=== PATIENT | male | born 1965 | race Caucasian/White ===

== ENCOUNTER 2019-04-21 20:10 | Observation (INO) ==
[2019-04-21] MEDS ORDERED: Aspirin 81 MG TAB.CHEW PO ONE (20:27)
[2019-04-21 20:49] LABS: Basophils % 0.4 %; Eosinophils # 0.3 K/mcL (0.0-0.6); Hematocrit 39.8 % (37.5-50.1); Hemoglobin 13.6 g/dL (12.9-16.9); Immature Granulocytes % 0.5 % (0-4); Lymphocytes # 2.4 K/mcL (0.6-4.6); Lymphocytes % 29.5 %; Mean Corpuscular HGB Conc 34.2 g/dL (31.6-35.5); Mean Corpuscular Hemoglobin 28.7 pg (28.0-33.3); Mean Platelet Volume 9.3 fL (9.4-12.4); Monocytes # 0.7 K/mcL (0.0-1.3); Monocytes % 8.7 %; Neutrophils # 4.6 K/mcL (1.6-8.9); Platelet Count 303 K/mcL (140-400); Red Blood Count 4.74 M/mcL (4.19-5.50); Red Cell Distribution Width 12.6 % (11.5-14.5); Segmented Neutrophils % 56.9 %; White Blood Count 8.2 K/mcL (4.3-11.1)
[2019-04-21 21:09] LABS: BUN/Creatinine Ratio 17 (6-26); Blood Urea Nitrogen 19 mg/dL (6-20); Calcium 9.1 mg/dL (8.6-10.3); Carbon Dioxide 24 mEq/L (23-29); Chloride 103 mEq/L (98-107); Glucose 111 mg/dL (70-105); Osmolality,Calculated 287 (280-300); Potassium 4.1 mEq/L (3.5-5.1); Sodium 137 mEq/L (136-145); Troponin I < 0.03 ng/mL (< 0.04); eGFR For African Americans > 60 (> 60); eGFR For Non-African Americans > 60 (> 60)
[2019-04-22] MEDS ORDERED: Naloxone 0.4 MG/ML INJ IVP PRN (02:20)
[2019-04-22] MEDS ORDERED: Acetaminophen 325 MG TABLET PO PRN (02:20)
[2019-04-22] MEDS ORDERED: Ondansetron 4 MG/2 ML VIAL IVP PRN (02:20)
[2019-04-22 03:51] LABS: Basophils % 0.6 %; Eosinophils # 0.3 K/mcL (0.0-0.6); Eosinophils % 4.2 %; Hematocrit 38.2 % (37.5-50.1); Hemoglobin 12.7 g/dL (12.9-16.9); Immature Granulocytes % 0.4 % (0-4); Lymphocytes # 2.3 K/mcL (0.6-4.6); Lymphocytes % 33.7 %; Mean Corpuscular HGB Conc 33.2 g/dL (31.6-35.5); Mean Corpuscular Hemoglobin 29.3 pg (28.0-33.3); Mean Corpuscular Volume 88.2 fL (83.0-100.0); Mean Platelet Volume 9.3 fL (9.4-12.4); Monocytes # 0.5 K/mcL (0.0-1.3); Monocytes % 8.1 %; Neutrophils # 3.6 K/mcL (1.6-8.9); Platelet Count 263 K/mcL (140-400); Red Blood Count 4.33 M/mcL (4.19-5.50); Red Cell Distribution Width 12.6 % (11.5-14.5); White Blood Count 6.7 K/mcL (4.3-11.1)
[2019-04-22 03:52] LABS: INR 0.9; Prothrombin Time 10.6 Seconds (9.4-12.1)
[2019-04-22 04:03] LABS: BUN/Creatinine Ratio 16 (6-26); Blood Urea Nitrogen 17 mg/dL (6-20); Calcium 9.1 mg/dL (8.6-10.3); Carbon Dioxide 26 mEq/L (23-29); Chloride 104 mEq/L (98-107); Chol/HDL Ratio 2.6 (0-4.9); Cholesterol 111 mg/dL (< 200); Glucose 106 mg/dL (70-105); HDL Cholesterol 43 mg/dL (40-59); LDL Cholesterol,Calculated 48 mg/dL (0-99); Magnesium 2.2 mg/dL (1.6-2.6); Osmolality,Calculated 284 (280-300); Phosphorous 4.1 mg/dL (2.7-4.5); Potassium 3.8 mEq/L (3.5-5.1); Sodium 136 mEq/L (136-145); Triglycerides 102 mg/dL (< 150); eGFR For African Americans > 60 (> 60); eGFR For Non-African Americans > 60 (> 60)
[2019-04-22] MEDS: 0.9 % Sodium Chloride 1,000 ML IVC SCH (04:45)
[2019-04-22] MEDS: Budesonide/Formoterol 80/4.5 1 PUFF INH IH SCH ×2 (07:49→20:40)
[2019-04-22] MEDS: carvediloL 25 MG TABLET PO SCH ×2 (08:50→16:57)
[2019-04-22] MEDS: Aspirin Enteric Coated 81 MG Tablet PO SCH (08:50)
[2019-04-22] MEDS: Furosemide 20 MG TABLET PO SCH (08:50)
[2019-04-22] MEDS ORDERED: Isosorbide MONOnitrate (24 HR) 30 MG TAB.ER.24H PO SCH (09:00)
[2019-04-22] MEDS ORDERED: amLODIPine 5 MG TABLET PO SCH (09:00)
[2019-04-22] MEDS: *HR* Heparin 5,000 UNIT/ML VIAL SQ SCH (16:57)
[2019-04-23] MEDS: 0.9 % Sodium Chloride 1,000 ML IVC SCH (00:22)
[2019-04-23] MEDS: *HR* Heparin 5,000 UNIT/ML VIAL SQ SCH (05:38)
[2019-04-23] MEDS: Budesonide/Formoterol 80/4.5 1 PUFF INH IH SCH (07:31)
[2019-04-23] MEDS: Aspirin Enteric Coated 81 MG Tablet PO SCH (07:56)
[2019-04-23] MEDS: carvediloL 25 MG TABLET PO SCH ×2 (07:57→16:24)
[2019-04-23] MEDS: Furosemide 20 MG TABLET PO SCH (07:57)
[2019-04-23] MEDS ORDERED: amLODIPine 5 MG TABLET PO SCH (09:00)
[2019-04-23] MEDS ORDERED: Isosorbide MONOnitrate (24 HR) 30 MG TAB.ER.24H PO SCH (09:00)
[2019-04-23] MEDS ORDERED: *HR* LORazepam 2 MG/ML VIAL IVP ONE (12:30)
[2019-04-23] MEDS ORDERED: GuaiFENesin Liq 200 MG/10 ML UDC PO PRN (14:15)
[2019-04-23 15:12] VITALS: BP 143/87
== END 2019-04-23 17:39 | disposition home or self-care (01) ==
LOC: EMEROOARM 20:10 → 3BNU 20:10 → SUATTDRO 04-22 00:59 → 3BNU 04-22 01:56
PROVIDERS: ADMIT Student in an Organized Health Care Education/Training Program; ATTEND Internal Medicine

== ENCOUNTER 2019-05-13 17:14 | Inpatient (IN) ==
[2019-05-13] MEDS ORDERED: Isovue-370 500 ML BOTTLE IVP ONE (17:39)
[2019-05-13 17:47] LABS: Hematocrit 39.7 % (37.5-50.1); Hemoglobin 13.4 g/dL (12.9-16.9); Mean Corpuscular HGB Conc 33.8 g/dL (31.6-35.5); Mean Corpuscular Hemoglobin 29.3 pg (28.0-33.3); Mean Corpuscular Volume 86.7 fL (83.0-100.0); Mean Platelet Volume 9.3 fL (9.4-12.4); Platelet Count 282 K/mcL (140-400); Red Blood Count 4.58 M/mcL (4.19-5.50); Red Cell Distribution Width 12.6 % (11.5-14.5); White Blood Count 6.8 K/mcL (4.3-11.1)
[2019-05-13 18:09] LABS: Activated Partial Thrombo Time 33.5 Seconds (26.0-36.0)
[2019-05-13 18:22] LABS: BUN/Creatinine Ratio 13 (6-26); Blood Urea Nitrogen 14 mg/dL (6-20); Calcium 9.2 mg/dL (8.6-10.3); Carbon Dioxide 22 mEq/L (23-29); Chloride 108 mEq/L (98-107); Glucose 102 mg/dL (70-105); Osmolality,Calculated 289 (280-300); Potassium 3.7 mEq/L (3.5-5.1); Sodium 139 mEq/L (136-145); Troponin I < 0.03 ng/mL (< 0.04); eGFR For African Americans > 60 (> 60); eGFR For Non-African Americans > 60 (> 60)
[2019-05-13] MEDS ORDERED: Aspirin Enteric Coated 325 MG Tablet PO ONE (22:19)
[2019-05-13] MEDS ORDERED: Naloxone 0.4 MG/ML INJ IVP PRN (22:26)
[2019-05-14 05:04] LABS: Basophils % 0.5 %; Eosinophils # 0.2 K/mcL (0.0-0.6); Eosinophils % 3.7 %; Hematocrit 36.7 % (37.5-50.1); Hemoglobin 12.1 g/dL (12.9-16.9); Immature Granulocytes % 0.2 % (0-4); Lymphocytes # 1.9 K/mcL (0.6-4.6); Lymphocytes % 33.8 %; Mean Corpuscular Hemoglobin 29.2 pg (28.0-33.3); Mean Corpuscular Volume 88.6 fL (83.0-100.0); Mean Platelet Volume 9.3 fL (9.4-12.4); Monocytes # 0.7 K/mcL (0.0-1.3); Monocytes % 11.4 %; Neutrophils # 2.9 K/mcL (1.6-8.9); Platelet Count 266 K/mcL (140-400); Red Blood Count 4.14 M/mcL (4.19-5.50); Red Cell Distribution Width 12.8 % (11.5-14.5); Segmented Neutrophils % 50.4 %; White Blood Count 5.7 K/mcL (4.3-11.1)
[2019-05-14 05:19] LABS: Alanine Aminotransferase 16 Units/L (7-52); Albumin 3.8 g/dL (3.5-5.7); Albumin/Globulin Ratio 1.6 (1.1-2.2); Alkaline Phosphatase 66 Units/L (34-104); Aspartate Amino Transferase 13 Units/L (13-39); BUN/Creatinine Ratio 15 (6-26); Bilirubin,Total 0.4 mg/dL (0.3-1.0); Blood Urea Nitrogen 16 mg/dL (6-20); Calcium 8.8 mg/dL (8.6-10.3); Carbon Dioxide 25 mEq/L (23-29); Chloride 109 mEq/L (98-107); Chol/HDL Ratio 2.6 (0-4.9); Cholesterol 95 mg/dL (< 200); Globulin 2.4 g/dL (2.4-3.5); Glucose 97 mg/dL (70-105); HDL Cholesterol 36 mg/dL (40-59); LDL Cholesterol,Calculated 25 mg/dL (0-99); Magnesium 2.3 mg/dL (1.6-2.6); Osmolality,Calculated 293 (280-300); Potassium 3.8 mEq/L (3.5-5.1); Sodium 141 mEq/L (136-145); Total Protein 6.2 g/dL (6.4-8.9); Triglycerides 169 mg/dL (< 150); eGFR For African Americans > 60 (> 60); eGFR For Non-African Americans > 60 (> 60)
[2019-05-14 05:31] LABS: Thyroid Stimulating Hormone 2.431 mcIU/mL (0.340-5.600)
[2019-05-14] MEDS: Budesonide/Formoterol 80/4.5 1 PUFF INH IH SCH ×2 (07:37→20:18)
[2019-05-14] MEDS: Aspirin Enteric Coated 81 MG Tablet PO SCH (08:42)
[2019-05-14] MEDS ORDERED: *HR* LORazepam 2 MG/ML VIAL IVP ONE (09:30)
[2019-05-14] MEDS: *HR* Heparin 5,000 UNIT/ML VIAL SQ SCH ×2 (14:50→22:11)
[2019-05-14] MEDS: carvediloL 25 MG TABLET PO SCH (17:00)
[2019-05-14] MEDS ORDERED: GI Cocktail 40 ML EACH PO ONE (23:28)
[2019-05-15] MEDS: *HR* Heparin 5,000 UNIT/ML VIAL SQ SCH ×3 (06:33→21:17)
[2019-05-15] MEDS: Budesonide/Formoterol 80/4.5 1 PUFF INH IH SCH ×2 (07:47→19:44)
[2019-05-15 08:46] LABS: Estimated Average Glucose 131 mg/dl
[2019-05-15] MEDS: Cholecalciferol (D-3) 1,000 UNIT (25MCG) TABLET PO SCH (10:40)
[2019-05-15] MEDS: carvediloL 25 MG TABLET PO SCH ×2 (10:40→17:03)
[2019-05-15] MEDS: Aspirin Enteric Coated 81 MG Tablet PO SCH (10:40)
[2019-05-15] MEDS ORDERED: *HR* LORazepam 2 MG/ML VIAL IVP STA (15:34)
[2019-05-16 02:54] LABS: BUN/Creatinine Ratio 13 (6-26); Blood Urea Nitrogen 16 mg/dL (6-20); Calcium 8.8 mg/dL (8.6-10.3); Carbon Dioxide 26 mEq/L (23-29); Chloride 106 mEq/L (98-107); Glucose 121 mg/dL (70-105); Magnesium 2.2 mg/dL (1.6-2.6); Osmolality,Calculated 288 (280-300); Phosphorous 4.4 mg/dL (2.7-4.5); Potassium 3.7 mEq/L (3.5-5.1); Sodium 138 mEq/L (136-145); eGFR For African Americans > 60 (> 60); eGFR For Non-African Americans > 60 (> 60)
[2019-05-16] MEDS: *HR* Heparin 5,000 UNIT/ML VIAL SQ SCH ×3 (06:00→21:29)
[2019-05-16] MEDS: Budesonide/Formoterol 80/4.5 1 PUFF INH IH SCH ×2 (07:35→20:13)
[2019-05-16] MEDS: Cholecalciferol (D-3) 1,000 UNIT (25MCG) TABLET PO SCH (09:45)
[2019-05-16] MEDS: carvediloL 25 MG TABLET PO SCH ×2 (09:46→17:10)
[2019-05-16] MEDS: Aspirin Enteric Coated 81 MG Tablet PO SCH (09:46)
[2019-05-16] MEDS ORDERED: *HR* LORazepam 2 MG/ML VIAL IVP ONE (16:00)
[2019-05-16] MEDS ORDERED: Acetaminophen 325 MG TABLET PO PRN (21:31)
[2019-05-16 22:18] LABS: Bilirubin,Urine Negative (Negative); Blood,Urine Negative (Negative); Clarity,Urine Clear (Clear); Color,Urine Yellow (Yellow); Glucose,Urine (UA) Normal (Normal); Ketones,Urine Negative (Negative); Leukocyte Esterase,Urine Negative (Negative); Nitrite,Urine Negative (Negative); Protein,Urine Negative (Neg-Trace); Specific Gravity,Urine 1.015 (1.010-1.025); Urobilinogen,Urine Normal (Normal)
[2019-05-17 01:55] LABS: Basophils % 0.6 %; Eosinophils # 0.3 K/mcL (0.0-0.6); Eosinophils % 4.1 %; Hematocrit 35.5 % (37.5-50.1); Hemoglobin 11.8 g/dL (12.9-16.9); Immature Granulocytes % 0.4 % (0-4); Lymphocytes # 2.4 K/mcL (0.6-4.6); Lymphocytes % 33.2 %; Mean Corpuscular HGB Conc 33.2 g/dL (31.6-35.5); Mean Corpuscular Hemoglobin 29.5 pg (28.0-33.3); Mean Corpuscular Volume 88.8 fL (83.0-100.0); Mean Platelet Volume 9.3 fL (9.4-12.4); Monocytes # 0.6 K/mcL (0.0-1.3); Monocytes % 9.1 %; Neutrophils # 3.7 K/mcL (1.6-8.9); Platelet Count 256 K/mcL (140-400); Red Cell Distribution Width 12.7 % (11.5-14.5); Segmented Neutrophils % 52.6 %; White Blood Count 7.1 K/mcL (4.3-11.1)
[2019-05-17 02:13] LABS: BUN/Creatinine Ratio 13 (6-26); Blood Urea Nitrogen 14 mg/dL (6-20); Calcium 8.7 mg/dL (8.6-10.3); Carbon Dioxide 26 mEq/L (23-29); Chloride 105 mEq/L (98-107); Glucose 100 mg/dL (70-105); Magnesium 2.2 mg/dL (1.6-2.6); Osmolality,Calculated 283 (280-300); Phosphorous 4.2 mg/dL (2.7-4.5); Potassium 3.8 mEq/L (3.5-5.1); Sodium 136 mEq/L (136-145); eGFR For African Americans > 60 (> 60); eGFR For Non-African Americans > 60 (> 60)
[2019-05-17] MEDS: *HR* Heparin 5,000 UNIT/ML VIAL SQ SCH ×3 (05:10→21:38)
[2019-05-17] MEDS: Budesonide/Formoterol 80/4.5 1 PUFF INH IH SCH ×2 (07:31→19:45)
[2019-05-17] MEDS: Cholecalciferol (D-3) 1,000 UNIT (25MCG) TABLET PO SCH (09:16)
[2019-05-17] MEDS: Aspirin Enteric Coated 81 MG Tablet PO SCH (09:16)
[2019-05-17] MEDS: carvediloL 25 MG TABLET PO SCH ×2 (09:17→16:59)
[2019-05-18 05:08] LABS: Basophils # 0.1 K/mcL (0.0-0.2); Basophils % 0.7 %; Eosinophils # 0.2 K/mcL (0.0-0.6); Eosinophils % 3.3 %; Hematocrit 35.7 % (37.5-50.1); Hemoglobin 11.6 g/dL (12.9-16.9); Immature Granulocytes % 0.7 % (0-4); Lymphocytes # 2.1 K/mcL (0.6-4.6); Lymphocytes % 29.8 %; Mean Corpuscular HGB Conc 32.5 g/dL (31.6-35.5); Mean Corpuscular Hemoglobin 29.1 pg (28.0-33.3); Mean Corpuscular Volume 89.7 fL (83.0-100.0); Mean Platelet Volume 9.7 fL (9.4-12.4); Monocytes # 0.7 K/mcL (0.0-1.3); Monocytes % 9.7 %; Neutrophils # 3.9 K/mcL (1.6-8.9); Platelet Count 268 K/mcL (140-400); Red Blood Count 3.98 M/mcL (4.19-5.50); Segmented Neutrophils % 55.8 %; White Blood Count 6.9 K/mcL (4.3-11.1)
[2019-05-18] MEDS: *HR* Heparin 5,000 UNIT/ML VIAL SQ SCH (05:16)
[2019-05-18 05:30] LABS: BUN/Creatinine Ratio 15 (6-26); Blood Urea Nitrogen 19 mg/dL (6-20); Calcium 8.8 mg/dL (8.6-10.3); Carbon Dioxide 22 mEq/L (23-29); Chloride 106 mEq/L (98-107); Glucose 121 mg/dL (70-105); Magnesium 2.2 mg/dL (1.6-2.6); Osmolality,Calculated 288 (280-300); Phosphorous 4.6 mg/dL (2.7-4.5); Potassium 3.8 mEq/L (3.5-5.1); Sodium 137 mEq/L (136-145); eGFR For African Americans > 60 (> 60); eGFR For Non-African Americans > 60 (> 60)
[2019-05-18] MEDS: Budesonide/Formoterol 80/4.5 1 PUFF INH IH SCH (07:42)
[2019-05-18] MEDS ORDERED: ceFAZolin 2,000 MG in 0.9 % Sodium Chloride 100 ML IVPB ONE (07:45)
[2019-05-18] MEDS: Cholecalciferol (D-3) 1,000 UNIT (25MCG) TABLET PO SCH (07:50)
[2019-05-18] MEDS: carvediloL 25 MG TABLET PO SCH ×3 (07:50→18:41)
[2019-05-18] MEDS: Aspirin Enteric Coated 81 MG Tablet PO SCH (07:50)
[2019-05-18] MEDS ORDERED: *HR* Midazolam HCl 2 MG/2 ML VIAL ONE (09:35)
[2019-05-18] MEDS ORDERED: *HR* FentaNYL (PF) 100 MCG/2 ML VIAL ONE (09:35)
[2019-05-18] MEDS ORDERED: *HR* Propofol 200 MG/20 ML VIAL IVP ONE (09:35)
[2019-05-18] MEDS ORDERED: Lidocaine -MPF 4% 5 ML AMPUL ONE (09:36)
[2019-05-18] MEDS ORDERED: Ondansetron 4 MG/2 ML VIAL ONE (09:36)
[2019-05-18] MEDS ORDERED: Lidocaine -MPF 2% 2 ML VIAL ONE (09:36)
[2019-05-18] MEDS ORDERED: *HR* Succinylcholine 200 MG/10 ML VIAL IVP ONE (09:36)
[2019-05-18] MEDS ORDERED: Dexamethasone 4 MG/ML VIAL ONE (09:36)
[2019-05-18] MEDS ORDERED: *HR* Remifentanil 1 MG VIAL IVP ONE (09:40)
[2019-05-18] MEDS ORDERED: Bacitracin 50,000 UNIT, Polymyxin B Sulfate 500,000 UNIT, Sodium Chloride IRRigation 1,... IR ONE (10:05)
[2019-05-18] MEDS ORDERED: Heparin 1,000 UNITS/500 mL 500 ML ONE (10:16)
[2019-05-18] MEDS ORDERED: *HR* Promethazine 25 MG/ML VIAL IVP PRN (10:25)
[2019-05-18] MEDS ORDERED: *HR* Labetalol 20 MG/4 ML SYRINGE IVP PRN (10:25)
[2019-05-18] MEDS ORDERED: Ondansetron 4 MG/2 ML VIAL IVP PRN ×2 (10:25→13:45)
[2019-05-18] MEDS ORDERED: *HR* HYDROmorphone (PF) 1 MG/ML SYRINGE IVP PRN (10:35)
[2019-05-18] MEDS ORDERED: Ringers Solution, Lactated 1,000 ML IVC SCH (10:45)
[2019-05-18] MEDS ORDERED: Naloxone 0.4 MG/ML INJ IVP PRN (13:45)
[2019-05-18] MEDS ORDERED: Acetaminophen 325 MG TABLET PO PRN (13:45)
[2019-05-18] MEDS: *HR* HYDROcodone/Acet 5/325 mg TABLET PO PRN (17:18)
[2019-05-18] MEDS: ceFAZolin 2,000 MG in 0.9 % Sodium Chloride 100 ML IVPB SCH (20:23)
[2019-05-18] MEDS: *HR* OxyCODONE Immed Rel 5 MG TABLET PO PRN (23:02)
[2019-05-19] MEDS: Ringers Solution, Lactated 1,000 ML IVC SCH ×3 (00:43→15:25)
[2019-05-19] MEDS: ceFAZolin 2,000 MG in 0.9 % Sodium Chloride 100 ML IVPB SCH (02:55)
[2019-05-19] MEDS: *HR* OxyCODONE Immed Rel 5 MG TABLET PO PRN ×2 (08:25→22:14)
[2019-05-19] MEDS: amLODIPine 5 MG TABLET PO SCH (08:25)
[2019-05-19] MEDS: Furosemide 20 MG TABLET PO SCH (08:25)
[2019-05-19] MEDS: carvediloL 25 MG TABLET PO SCH ×2 (08:25→16:54)
[2019-05-19] MEDS ORDERED: Spironolactone 25 MG TABLET PO SCH (09:00)
[2019-05-19] MEDS: *HR* HYDROcodone/Acet 5/325 mg TABLET PO PRN (15:30)
[2019-05-20] MEDS: Ringers Solution, Lactated 1,000 ML IVC SCH (01:28)
[2019-05-20 02:49] LABS: BUN/Creatinine Ratio 15 (6-26); Blood Urea Nitrogen 16 mg/dL (6-20); Calcium 8.6 mg/dL (8.6-10.3); Carbon Dioxide 25 mEq/L (23-29); Chloride 104 mEq/L (98-107); Glucose 123 mg/dL (70-105); Osmolality,Calculated 285 (280-300); Phosphorous 3.6 mg/dL (2.7-4.5); Sodium 136 mEq/L (136-145); eGFR For African Americans > 60 (> 60); eGFR For Non-African Americans > 60 (> 60)
[2019-05-20 03:04] LABS: Basophils % 0.2 %; Eosinophils # 0.1 K/mcL (0.0-0.6); Hematocrit 31.8 % (37.5-50.1); Hemoglobin 10.6 g/dL (12.9-16.9); Immature Granulocytes % 0.4 % (0-4); Lymphocytes # 2.2 K/mcL (0.6-4.6); Lymphocytes % 22.3 %; Mean Corpuscular HGB Conc 33.3 g/dL (31.6-35.5); Mean Corpuscular Hemoglobin 29.9 pg (28.0-33.3); Mean Corpuscular Volume 89.8 fL (83.0-100.0); Mean Platelet Volume 10.3 fL (9.4-12.4); Monocytes # 1.1 K/mcL (0.0-1.3); Monocytes % 10.8 %; Neutrophils # 6.4 K/mcL (1.6-8.9); Platelet Count 214 K/mcL (140-400); Red Blood Count 3.54 M/mcL (4.19-5.50); Red Cell Distribution Width 13.3 % (11.5-14.5); Segmented Neutrophils % 65.3 %; White Blood Count 9.8 K/mcL (4.3-11.1)
[2019-05-20] MEDS: amLODIPine 5 MG TABLET PO SCH (08:28)
[2019-05-20] MEDS: carvediloL 25 MG TABLET PO SCH (08:28)
[2019-05-20] MEDS: Furosemide 20 MG TABLET PO SCH (08:28)
[2019-05-20] MEDS: *HR* HYDROcodone/Acet 5/325 mg TABLET PO PRN (08:59)
[2019-05-20 13:37] VITALS: BP 126/79
== END 2019-05-20 14:55 | disposition home or self-care (01) | DRG 321 ==
LOC: 2NENU 17:14 → EMEROOARM 17:14 → SUATTDRO 19:05 → 2NENU 20:00
PROVIDERS: ADMIT Internal Medicine; ATTEND Internal Medicine